=== PATIENT | male | born 1950 | race Caucasian/White ===

== ENCOUNTER → 2017-02-12 | Outpatient (CLI) | payer BC ==
[2011-12-28 09:45] VITALS: BP 128/87
[~2017-02-12] MED LIST: LISINOPRIL40 MG PO
== END ==
LOC: RAD 02-09 12:00 → VAS 14:46 → RAD 14:46
DX: R00.2 Palpitations (principal)

== ENCOUNTER → 2021-01-24 | Outpatient (CLI) | payer BC ==
[2011-12-28 09:45] VITALS: BP 128/87
[2021-01-24 08:51] LABS: HEMATOCRIT 50.8 % (42.0-52.0); HEMOGLOBIN 17.5 g/dL (13.5-18.0); MEAN CELL VOLUME 83 fl (78-100); MEAN CORPUSCULAR HEMOGLOBIN 29 pg (27-31); MEAN CORPUSCULAR HGB CONC 34 g/dL (33-37); PLATELET COUNT 248 K/mm3 (130-400); RED CELL DISTRIBUTION WIDTH 14.6 % (11.5-14.5)
[2021-01-24 08:59] LABS: ALBUMIN 4.4 g/dL (3.4-4.8); POTASSIUM 4.5 mmol/L (3.5-5.1)
[2021-01-24 09:01] LABS: CALCIUM 9.1 mg/dL (8.3-10.5)
[2021-01-24 09:02] LABS: TOTAL PROTEIN 6.9 g/dL (6.2-8.1)
[2021-01-24 09:50] LABS: LYMPHOCYTE 79 % (20-51); MONOCYTE 1 % (3-10); NEUTROPHILS 19 % (42-75); WHITE BLOOD COUNT 34.9 K/mm3 (4.8-10.8)
== END ==
LOC: RAD 08:30 → LAB 08:30 → RAD 09:00
PROVIDERS: Internal Medicine
DX: C91.10 Chronic lymphocytic leukemia of B-cell type not having achieved remission (principal); N40.0 Benign prostatic hyperplasia without lower urinary tract symptoms
CPT/HCPCS: Q9967